=== PATIENT | male | born 1955 | race Caucasian/White ===

== ENCOUNTER 2016-10-09 03:03 | Inpatient (IN) | payer OTHER ==
[~2016-10-09] VITALS: Ht 170.2 cm; Wt 73.1 kg
[~2016-10-09 03:03] MED LIST: ACET-784 PO; AMLO2.5T PO; FERR-89 PO; INSLAN SQ; MULT-1238 PO; PANT40TA25 PO; TAMS0.4C32 PO
[2016-10-09 03:42] LABS: GLUCOSE,POINT OF CARE 73 MG/DL (70-110)
[2016-10-09 04:06] LABS: BASOPHILS % (AUTO) 0.1 % (0.0-2.0); EOSINOPHILS % (AUTO) 0.2 % (1.0-6.0); HEMATOCRIT 22.4 % (41-53); HEMOGLOBIN 7.6 g/dL (13.5-17.5); LYMPHOCYTES # (AUTO) 0.4 K/uL (1.0-4.8); LYMPHOCYTES % (AUTO) 5.4 % (22.0-44.0); MEAN CORPUSCULAR HEMOGLOBIN 31.2 pg (26.0-34.0); MEAN CORPUSCULAR HGB CONC 33.7 G/dL (31.0-37.0); MEAN CORPUSCULAR VOLUME 93 fL (80-100); MONOCYTES # (AUTO) 0.8 K/uL (0.1-1.0); NEUTROPHILS # (AUTO) 6.6 K/uL (1.8-7.7); NEUTROPHILS % (AUTO) 84.3 % (40.0-70.0); PLATELET COUNT (AUTO) 265 K/uL (150-450); RED BLOOD CELL COUNT(AUTO) 2.43 MIL/uL (4.50-5.90); WHITE BLOOD COUNT (AUTO) 7.8 K/uL (4.5-11.0)
[2016-10-09 04:18] LABS: INR 1.1 (0.9-1.1); PROTHROMBIN TIME 11.4 SEC (9.4-11.6)
[2016-10-09 04:41] LABS: BILIRUBIN,TOTAL 0.5 mg/dL (0.1-1.0); CALCIUM, TOTAL 7.5 mg/dL (8.8-10.5); CREATININE 12.76 mg/dL (0.60-1.30); POTASSIUM 4.4 mmol/L (3.5-5.1)
[2016-10-09] MEDS ORDERED: ASPIRIN 325 MG TABLET PO ONE (05:45)
[2016-10-09] MEDS ORDERED: NITROGLYCERIN 0.4 MG SUBLINGUAL TABLET #25 SL ONE (05:45)
[2016-10-09] MEDS ORDERED: HEPARIN SODIUM 25000 UNITS/D5W 250 ML IV ONE ×2 (06:00→06:45)
[2016-10-09] MEDS ORDERED: MORPHINE SULFATE 2 MG/ML SYRINGE IVP ONE (06:00)
[2016-10-09] MEDS ORDERED: CLOPIDOGREL BISULFATE 75 MG TABLET PO ONE (06:00)
[2016-10-09] MEDS ORDERED: ONDANSETRON HCL 4 MG/2 ML VIAL IVP ONE (06:00)
[2016-10-09] MEDS ORDERED: ONDANSETRON HCL 4 MG/2 ML VIAL IVP PRN ×2 (06:15→12:15)
[2016-10-09] MEDS ORDERED: 0.9% SODIUM CHLORIDE 10 ML SYRINGE IVP PRN (06:15)
[2016-10-09] MEDS ORDERED: HEPARIN SODIUM,PORCINE 5,000 UNITS/ML VIAL IVP ONE ×2 (06:30→06:45)
[2016-10-09] MEDS ORDERED: FUROSEMIDE 40 MG/4 ML VIAL IVP ONE (06:45)
[2016-10-09] MEDS ORDERED: HEPARIN SODIUM,PORCINE 5,000 UNITS/ML VIAL IVP PRN ×2 (07:00)
[2016-10-09 10:09] LABS: ABG A-A DIFF O2 25.5 mmHg (10-20.0); ABG BASE EXCESS -20.5 mmol/L (-2.0-3.0); ABG OXYHEMOGLOBIN 95.1 % (94.0-100.0); ABG PCO2 26 mmHg (35-45); TEMPERATURE, FAHRENHEIT, BG 97.8 FAHREN (96.0-98.6)
[2016-10-09 10:10] LABS: ABG PH 7.136 (7.35-7.450)
[2016-10-09 10:11] LABS: ABG HCO3 9.9 mmol/L (22.0-26.0); ALLEN TEST, BLOOD GAS Positive
[2016-10-09] MEDS ORDERED: VITAMIN B COMP/VIT C/FOLIC ACID CAPSULE PO ONE (10:15)
[2016-10-09] MEDS ORDERED: EPOETIN ALFA 10,000 UNITS/ML VIAL SQ ONE (10:15)
[2016-10-09] MEDS ORDERED: SODIUM BICARBONATE [ADULT] 8.4% 50 MEQ/50 ML SYRINGE IVP ONE (10:45)
[2016-10-09] MEDS ORDERED: HEPARIN SODIUM,PORCINE 1,000 UNITS/ML VIAL IVP ONE (12:00)
[2016-10-09] MEDS ORDERED: ALBUTEROL SULFATE 2.5 MG/0.5 ML NEB SOLUTION NEB PRN (12:15)
[2016-10-09] MEDS ORDERED: BISACODYL 10 MG RECTAL RECTAL SUPPOSITORY PR PRN (12:15)
[2016-10-09] MEDS ORDERED: IPRATROPIUM BROMIDE 0.5 MG/2.5 ML NEB SOLUTION NEB PRN (12:15)
[2016-10-09] MEDS ORDERED: MORPHINE SULFATE 4 MG/ML SYRINGE IVP PRN (12:15)
[2016-10-09] MEDS ORDERED: OxyCODONE HCL/ACETAMINOPHEN 5-325 MG TABLET PO PRN (12:15)
[2016-10-09] MEDS ORDERED: ACETAMINOPHEN 325 MG TABLET PO PRN (12:15)
[2016-10-09] MEDS: METOPROLOL TARTRATE 25 MG TABLET PO SCH ×2 (12:30→21:33)
[2016-10-09] MEDS ORDERED: DEXTROSE 50%-WATER 25 GM/50 ML SYRINGE IVP PRN (12:30)
[2016-10-09] MEDS: ATORVASTATIN CALCIUM 40 MG TABLET PO SCH (12:30)
[2016-10-09 13:13] LABS: HEMATOCRIT 21.2 % (41-53); HEMOGLOBIN 7.1 g/dL (13.5-17.5); MEAN CORPUSCULAR HEMOGLOBIN 31.4 pg (26.0-34.0); MEAN CORPUSCULAR HGB CONC 33.6 G/dL (31.0-37.0); MEAN CORPUSCULAR VOLUME 93 fL (80-100); RED BLOOD CELL COUNT(AUTO) 2.27 MIL/uL (4.50-5.90); RED CELL DISTRIBUTION WIDTH 17.1 % (11.5-14.5); WHITE BLOOD COUNT (AUTO) 6.2 K/uL (4.5-11.0)
[2016-10-09 13:14] LABS: BASOPHILS % (AUTO) 0.1 % (0.0-2.0); EOSINOPHILS % (AUTO) 0.01 % (1.0-6.0); LYMPHOCYTES # (AUTO) 0.7 K/uL (1.0-4.8); LYMPHOCYTES % (AUTO) 10.6 % (22.0-44.0); MONOCYTES # (AUTO) 0.7 K/uL (0.1-1.0); MONOCYTES % (AUTO) 11.1 % (2.0-9.0); NEUTROPHILS # (AUTO) 4.8 K/uL (1.8-7.7); NEUTROPHILS % (AUTO) 78.3 % (40.0-70.0); PLATELET COUNT (AUTO) 189 K/uL (150-450)
[2016-10-09 13:21] LABS: RBC MORPHOLOGY COMMENT ABNORMAL RBC MORPH
[2016-10-09 14:07] LABS: GLUCOSE,POINT OF CARE 86 MG/DL (70-110)
[2016-10-09] MEDS ORDERED: SODIUM CHLORIDE 0.9% 250 ML IV ONE ×2 (15:30→16:16)
[2016-10-09 18:02] LABS: GLUCOSE,POINT OF CARE 78 MG/DL (70-110)
[2016-10-09 20:00] VITALS: BP 113/57
[2016-10-09] MEDS: PANTOPRAZOLE SODIUM 40 MG DR TABLET PO SCH (21:33)
[2016-10-09] MEDS: DOCUSATE SODIUM 100 MG CAPSULE PO SCH (21:34)
[2016-10-09] MEDS: INSULIN ASPART 100 UNITS/ML SQ PRN (21:51)
[2016-10-10] VITALS: BP 157/99
[2016-10-10] MEDS ORDERED: HEPARIN SODIUM,PORCINE 5,000 UNITS/ML VIAL IVP PRN ×2 (01:00)
[2016-10-10] MEDS ORDERED: PNEUMOCOCCAL VACCINE POLYVALENT 0.5 ML VIAL [PPSV23] IM ONE (02:00)
[2016-10-10 04:00] VITALS: BP 151/91
[2016-10-10 05:12] LABS: BASOPHILS # (AUTO) 0.02 K/uL (0.00-0.20); BASOPHILS % (AUTO) 0.4 % (0.0-2.0); EOSINOPHILS # (AUTO) 0.04 K/uL (0.00-0.70); EOSINOPHILS % (AUTO) 0.82 % (1.0-6.0); HEMATOCRIT 25.1 % (41-53); HEMOGLOBIN 8.3 g/dL (13.5-17.5); LYMPHOCYTES # (AUTO) 0.9 K/uL (1.0-4.8); LYMPHOCYTES % (AUTO) 17.3 % (22.0-44.0); MEAN CORPUSCULAR HEMOGLOBIN 30.6 pg (26.0-34.0); MEAN CORPUSCULAR HGB CONC 33.1 G/dL (31.0-37.0); MEAN CORPUSCULAR VOLUME 93 fL (80-100); MONOCYTES # (AUTO) 0.7 K/uL (0.1-1.0); MONOCYTES % (AUTO) 14.3 % (2.0-9.0); NEUTROPHILS # (AUTO) 3.4 K/uL (1.8-7.7); NEUTROPHILS % (AUTO) 67.2 % (40.0-70.0); PLATELET COUNT (AUTO) 166 K/uL (150-450); RED BLOOD CELL COUNT(AUTO) 2.71 MIL/uL (4.50-5.90); RED CELL DISTRIBUTION WIDTH 16.9 % (11.5-14.5)
[2016-10-10 05:18] LABS: CREATININE 9.74 mg/dL (0.60-1.30); POTASSIUM 3.8 mmol/L (3.5-5.1)
[2016-10-10] MEDS: HEPARIN SODIUM 25000 UNITS/D5W 250 ML IV PRN (06:43)
[2016-10-10 07:36] LABS: GLUCOSE,POINT OF CARE 142 MG/DL (70-110)
[2016-10-10 07:36] LABS: GLUCOSE,POINT OF CARE 83 MG/DL (70-110)
[2016-10-10] MEDS: DOCUSATE SODIUM 100 MG CAPSULE PO SCH ×2 (07:54→21:18)
[2016-10-10] MEDS: METOPROLOL TARTRATE 25 MG TABLET PO SCH (07:54)
[2016-10-10] MEDS: PANTOPRAZOLE SODIUM 40 MG DR TABLET PO SCH ×2 (07:55→21:18)
[2016-10-10 08:00] VITALS: BP 176/86
[2016-10-10] MEDS: ATORVASTATIN CALCIUM 40 MG TABLET PO SCH (08:08)
[2016-10-10 09:13] LABS: RBC MORPHOLOGY COMMENT DIMORPHIC RBC
[2016-10-10] MEDS ORDERED: MANNITOL 25%-12.5 GM/50 ML VIAL IVP PRN (09:45)
[2016-10-10] MEDS ORDERED: HEPARIN SODIUM,PORCINE 1,000 UNITS/ML VIAL IVP ONE ×3 (09:45→18:13)
[2016-10-10] MEDS: CALCIUM ACETATE 667 MG CAPSULE PO SCH ×2 (11:38→17:23)
[2016-10-10] MEDS: INSULIN ASPART 100 UNITS/ML SQ PRN ×2 (11:39→17:24)
[2016-10-10 12:00] VITALS: BP 145/77
[2016-10-10] MEDS: METOPROLOL SUCCINATE 50 MG ER TABLET PO SCH (15:44)
[2016-10-10 16:00] VITALS: BP 138/67
[2016-10-10 17:52] LABS: GLUCOSE COMMENT 1 Received Meds; GLUCOSE,POINT OF CARE 223 MG/DL (70-110)
[2016-10-10 17:52] LABS: GLUCOSE COMMENT 1 Received Meds; GLUCOSE,POINT OF CARE 243 MG/DL (70-110)
[2016-10-10 20:00] VITALS: BP 142/74
[2016-10-10] MEDS: AmLODIPine BESYLATE 5 MG TABLET PO SCH (22:55)
[2016-10-11] VITALS (16 sets, daily range): BP systolic 71–159; BP diastolic 67–168
[2016-10-11] MEDS ORDERED: HEPARIN SODIUM,PORCINE 1,000 UNITS/ML VIAL IVP ONE
[2016-10-11] MEDS: HEPARIN SODIUM 25000 UNITS/D5W 250 ML IV PRN (05:08)
[2016-10-11 05:18] LABS: BASOPHILS % (AUTO) 0.4 % (0.0-2.0); EOSINOPHILS % (AUTO) 1.1 % (1.0-6.0); HEMATOCRIT 26.7 % (41-53); HEMOGLOBIN 9.1 g/dL (13.5-17.5); LYMPHOCYTES # (AUTO) 1.2 K/uL (1.0-4.8); MEAN CORPUSCULAR HEMOGLOBIN 31.3 pg (26.0-34.0); MEAN CORPUSCULAR HGB CONC 34.2 G/dL (31.0-37.0); MEAN CORPUSCULAR VOLUME 92 fL (80-100); MONOCYTES # (AUTO) 0.9 K/uL (0.1-1.0); MONOCYTES % (AUTO) 15.1 % (2.0-9.0); NEUTROPHILS # (AUTO) 3.7 K/uL (1.8-7.7); NEUTROPHILS % (AUTO) 63.4 % (40.0-70.0); PLATELET COUNT (AUTO) 175 K/uL (150-450); RED BLOOD CELL COUNT(AUTO) 2.92 MIL/uL (4.50-5.90); RED CELL DISTRIBUTION WIDTH 16.3 % (11.5-14.5); WHITE BLOOD COUNT (AUTO) 5.9 K/uL (4.5-11.0)
[2016-10-11 05:26] LABS: CALCIUM, TOTAL 7.4 mg/dL (8.8-10.5); CREATININE 6.98 mg/dL (0.60-1.30); POTASSIUM 3.6 mmol/L (3.5-5.1)
[2016-10-11] MEDS: ATORVASTATIN CALCIUM 40 MG TABLET PO SCH (08:02)
[2016-10-11] MEDS: CALCIUM ACETATE 667 MG CAPSULE PO SCH ×3 (08:02→17:51)
[2016-10-11] MEDS: DOCUSATE SODIUM 100 MG CAPSULE PO SCH ×2 (08:02→21:09)
[2016-10-11] MEDS: PANTOPRAZOLE SODIUM 40 MG DR TABLET PO SCH ×2 (08:02→21:09)
[2016-10-11] MEDS: AmLODIPine BESYLATE 5 MG TABLET PO SCH ×2 (08:02→21:10)
[2016-10-11] MEDS: METOPROLOL SUCCINATE 50 MG ER TABLET PO SCH (08:02)
[2016-10-11] MEDS ORDERED: EPOETIN ALFA 10,000 UNITS/ML VIAL SQ SCH (09:00)
[2016-10-11] MEDS ORDERED: FentaNYL CITRATE-PF 100 MCG/2 ML VIAL ONE (12:04)
[2016-10-11] MEDS ORDERED: MIDAZOLAM HCL 2 MG/2 ML VIAL ONE (12:04)
[2016-10-11] MEDS ORDERED: NITROGLYCERIN 50 MG/D5% WATER 250 ML ONE (12:05)
[2016-10-11] MEDS ORDERED: IOHEXOL 300 MG/ML 50 ML VIAL ONE (12:05)
[2016-10-11] MEDS ORDERED: VERAPAMIL HCL 2.5 MG/ML 2 ML VIAL ONE (12:05)
[2016-10-11] MEDS ORDERED: HEPARIN SODIUM,PORCINE 1,000 UNITS/ML 10 ML VIAL ONE (12:05)
[2016-10-11] MEDS ORDERED: LIDOCAINE HCL/PF 1% 30 ML VIAL ONE (12:05)
[2016-10-11] MEDS ORDERED: IOHEXOL 300 MG/ML 150 ML VIAL ONE (12:06)
[2016-10-11] MEDS ORDERED: SODIUM CHLORIDE 0.9% 500 ML IV ONE (12:19)
[2016-10-11] MEDS ORDERED: LIDOCAINE HCL/PF 1% 30 ML VIAL INJ ONE (12:20)
[2016-10-11] MEDS ORDERED: HEPARIN SODIUM 2,000 UNITS in HEPARIN SODIUM 1000 UNITS/NS 1,000 ML IARTER ONE (12:22)
[2016-10-11] MEDS ORDERED: IOHEXOL 300 MG/ML 150 ML VIAL IARTER ONE (12:29)
[2016-10-11] MEDS ORDERED: IOHEXOL 300 MG/ML 100 ML VIAL IARTER ONE (12:29)
[2016-10-11] MEDS ORDERED: IOHEXOL 300 MG/ML 50 ML VIAL IARTER ONE (12:29)
[2016-10-11] MEDS ORDERED: ASPIRIN 81 MG CHEWABLE TABLET ONE (12:43)
[2016-10-11] MEDS ORDERED: TICAGRELOR 90 MG TABLET ONE (12:43)
[2016-10-11] MEDS ORDERED: HEPARIN SODIUM,PORCINE 5,000 UNITS/ML VIAL IVP ONE ×2 (12:45→13:02)
[2016-10-11] MEDS ORDERED: ASPIRIN 325 MG TABLET PO ONE (12:47)
[2016-10-11] MEDS ORDERED: TICAGRELOR 90 MG TABLET PO ONE (12:47)
[2016-10-11] MEDS ORDERED: IOHEXOL 300 MG/ML 100 ML VIAL ONE (12:57)
[2016-10-11] MEDS ORDERED: NITROGLYCERIN/D5W 50 MG/250 ML IV BOTTLE ICOR ONE (13:06)
[2016-10-11] MEDS ORDERED: VERAPAMIL HCL 2.5 MG/ML 2 ML VIAL ICOR ONE (13:06)
[2016-10-11] MEDS: TICAGRELOR 90 MG TABLET PO SCH (21:09)
[2016-10-11] MEDS: INSULIN ASPART 100 UNITS/ML SQ PRN (21:10)
[2016-10-12] VITALS (7 sets, daily range): BP systolic 90–150; BP diastolic 62–86
[2016-10-12 00:57] LABS: GLUCOSE COMMENT 1 Received Meds; GLUCOSE,POINT OF CARE 96 MG/DL (70-110)
[2016-10-12 00:57] LABS: GLUCOSE,POINT OF CARE 186 MG/DL (70-110)
[2016-10-12 00:57] LABS: GLUCOSE,POINT OF CARE 124 MG/DL (70-110)
[2016-10-12 00:57] LABS: GLUCOSE,POINT OF CARE 123 MG/DL (70-110)
[2016-10-12 00:57] LABS: GLUCOSE,POINT OF CARE 116 MG/DL (70-110)
[2016-10-12 06:48] LABS: GLUCOSE,POINT OF CARE 90 MG/DL (70-110)
[2016-10-12 06:50] LABS: CALCIUM, TOTAL 7.7 mg/dL (8.8-10.5); CREATININE 5.1 mg/dL (0.60-1.30); POTASSIUM 3.5 mmol/L (3.5-5.1)
[2016-10-12] MEDS: ASPIRIN 81 MG CHEWABLE TABLET PO SCH (08:27)
[2016-10-12] MEDS: AmLODIPine BESYLATE 5 MG TABLET PO SCH ×2 (08:27→20:34)
[2016-10-12] MEDS: PANTOPRAZOLE SODIUM 40 MG DR TABLET PO SCH ×2 (08:27→20:34)
[2016-10-12] MEDS: ATORVASTATIN CALCIUM 40 MG TABLET PO SCH (08:27)
[2016-10-12] MEDS: CALCIUM ACETATE 667 MG CAPSULE PO SCH ×3 (08:27→17:48)
[2016-10-12] MEDS: DOCUSATE SODIUM 100 MG CAPSULE PO SCH ×2 (08:28→20:34)
[2016-10-12] MEDS: METOPROLOL SUCCINATE 50 MG ER TABLET PO SCH (08:28)
[2016-10-12] MEDS: TICAGRELOR 90 MG TABLET PO SCH ×2 (09:16→20:33)
[2016-10-12] MEDS: INSULIN ASPART 100 UNITS/ML SQ PRN ×2 (12:13→21:51)
[2016-10-12] MEDS: MUPIROCIN CALCIUM 2% 22 GM OINTMENT NASAL SCH (20:33)
[2016-10-13] MEDS ORDERED: HEPARIN SODIUM,PORCINE 1,000 UNITS/ML VIAL IVP ONE
[2016-10-13] MEDS ORDERED: MIDAZOLAM HCL 2 MG/2 ML VIAL IVP ONE (00:22)
[2016-10-13] MEDS ORDERED: FentaNYL CITRATE-PF 100 MCG/2 ML VIAL IVP ONE (00:22)
[2016-10-13] MEDS ORDERED: DiphenhydrAMINE HCL 50 MG/ML VIAL IVP ONE (00:22)
[2016-10-13] MEDS ORDERED: KETAMINE HCL 50 MG/ML 10 ML VIAL IVP ONE (00:22)
[2016-10-13] MEDS ORDERED: HEPARIN SODIUM,PORCINE 1,000 UNITS/ML 10 ML VIAL IVP ONE (00:22)
[2016-10-13] MEDS ORDERED: PROPOFOL 1% 20 ML VIAL IVP ONE (00:22)
[2016-10-13] MEDS ORDERED: ONDANSETRON HCL 4 MG/2 ML VIAL IVP ONE (00:22)
[2016-10-13 04:18] VITALS: BP 146/84
[2016-10-13 06:48] LABS: BASOPHILS % (AUTO) 0.3 % (0.0-2.0); EOSINOPHILS % (AUTO) 2.2 % (1.0-6.0); HEMATOCRIT 24.8 % (41-53); HEMOGLOBIN 8.4 g/dL (13.5-17.5); LYMPHOCYTES # (AUTO) 1.3 K/uL (1.0-4.8); LYMPHOCYTES % (AUTO) 16.9 % (22.0-44.0); MEAN CORPUSCULAR HEMOGLOBIN 31.2 pg (26.0-34.0); MEAN CORPUSCULAR HGB CONC 34.1 G/dL (31.0-37.0); MEAN CORPUSCULAR VOLUME 92 fL (80-100); MONOCYTES # (AUTO) 1.4 K/uL (0.1-1.0); NEUTROPHILS # (AUTO) 4.7 K/uL (1.8-7.7); NEUTROPHILS % (AUTO) 61.6 % (40.0-70.0); PLATELET COUNT (AUTO) 173 K/uL (150-450); RED BLOOD CELL COUNT(AUTO) 2.71 MIL/uL (4.50-5.90); RED CELL DISTRIBUTION WIDTH 16.3 % (11.5-14.5); WHITE BLOOD COUNT (AUTO) 7.6 K/uL (4.5-11.0)
[2016-10-13 07:03] LABS: CALCIUM, TOTAL 7.7 mg/dL (8.8-10.5); CREATININE 6.63 mg/dL (0.60-1.30)
[2016-10-13 07:25] VITALS: BP 145/85
[2016-10-13] MEDS: CALCIUM ACETATE 667 MG CAPSULE PO SCH ×3 (08:00→18:00)
[2016-10-13] MEDS: ATORVASTATIN CALCIUM 40 MG TABLET PO SCH (09:00)
[2016-10-13] MEDS: DOCUSATE SODIUM 100 MG CAPSULE PO SCH ×2 (09:00→21:00)
[2016-10-13] MEDS: PANTOPRAZOLE SODIUM 40 MG DR TABLET PO SCH ×2 (09:00→22:48)
[2016-10-13] MEDS: ASPIRIN 81 MG CHEWABLE TABLET PO SCH (09:00)
[2016-10-13] MEDS: METOPROLOL SUCCINATE 50 MG ER TABLET PO SCH (09:00)
[2016-10-13] MEDS: AmLODIPine BESYLATE 5 MG TABLET PO SCH ×2 (09:00→22:48)
[2016-10-13] MEDS: CALCITRIOL 0.25 MCG CAPSULE PO SCH (09:00)
[2016-10-13] MEDS: MUPIROCIN CALCIUM 2% 22 GM OINTMENT NASAL SCH (09:06)
[2016-10-13] MEDS: TICAGRELOR 90 MG TABLET PO SCH ×2 (09:06→22:48)
[2016-10-13] MEDS ORDERED: LORazepam 2 MG/ML VIAL IVP PRN (09:15)
[2016-10-13] MEDS ORDERED: SODIUM CHLORIDE 0.9% 2,000 ML IV ONE (11:06)
[2016-10-13 12:13] VITALS: BP 151/92
[2016-10-13 15:57] VITALS: BP 135/75
[2016-10-13] MEDS ORDERED: SODIUM CHLORIDE 0.9% 1,000 ML IV ONE ×2 (16:00→16:10)
[2016-10-13] MEDS ORDERED: HYDROmorphone 2 MG/ML SYRINGE IVP PRN (17:30)
[2016-10-13] MEDS ORDERED: FentaNYL CITRATE-PF 100 MCG/2 ML VIAL IVP PRN (17:30)
[2016-10-13] MEDS ORDERED: MEPERIDINE-PF 25 MG/ML SYRINGE IVP PRN (17:30)
[2016-10-13] MEDS ORDERED: HEPARIN SODIUM,PORCINE 5,000 UNITS/ML VIAL SQ ONE (17:32)
[2016-10-13] MEDS ORDERED: SODIUM CHLORIDE 0.9% 10 ML ONE (17:32)
[2016-10-13] MEDS ORDERED: LIDOCAINE HCL/PF 1% 30 ML VIAL ONE (17:32)
[2016-10-13] MEDS ORDERED: SODIUM CHLORIDE 0.9% 0 ML IV ONE (17:33)
[2016-10-13] MEDS ORDERED: HYDROCODONE/ACETAMINOPHEN 5-325 MG TABLET PO PRN (18:00)
[2016-10-13] MEDS ORDERED: LABETALOL HCL 5 MG/ML 20 ML VIAL IVP ONE ×2 (19:15→19:24)
[2016-10-13 20:00] VITALS: BP 147/84
[2016-10-13] MEDS: OXYGEN THERAPY IH SCH (20:00)
[2016-10-14] VITALS: BP 142/74
[2016-10-14 04:00] VITALS: BP 145/75
[2016-10-14] MEDS: INSULIN ASPART 100 UNITS/ML SQ PRN ×4 (06:31→20:25)
[2016-10-14 06:51] LABS: HEMATOCRIT 24.5 % (41-53); HEMOGLOBIN 8.2 g/dL (13.5-17.5); MEAN CORPUSCULAR HEMOGLOBIN 31.1 pg (26.0-34.0); MEAN CORPUSCULAR HGB CONC 33.7 G/dL (31.0-37.0); MEAN CORPUSCULAR VOLUME 92 fL (80-100); PLATELET COUNT (AUTO) 185 K/uL (150-450); RED BLOOD CELL COUNT(AUTO) 2.65 MIL/uL (4.50-5.90); RED CELL DISTRIBUTION WIDTH 16.2 % (11.5-14.5); WHITE BLOOD COUNT (AUTO) 7.8 K/uL (4.5-11.0)
[2016-10-14 07:03] LABS: ALBUMIN 2.3 g/dL (3.4-5.0); BILIRUBIN,TOTAL 0.4 mg/dL (0.1-1.0); CALCIUM, TOTAL 7.7 mg/dL (8.8-10.5); CREATININE 4.84 mg/dL (0.60-1.30); POTASSIUM 4.5 mmol/L (3.5-5.1); TOTAL PROTEIN, SERUM 5.9 g/dL (6.4-8.2)
[2016-10-14 07:34] LABS: BAND NEUTROPHILS % (MANUAL) 1 % (1-5); LYMPHOCYTES % (MANUAL) 31 % (22-44); RBC MORPHOLOGY COMMENT NORMAL RBC MORPH; TOTAL CELLS COUNTED 100
[2016-10-14] MEDS: OXYGEN THERAPY IH SCH ×2 (08:00→20:00)
[2016-10-14 08:02] VITALS: BP 139/80
[2016-10-14] MEDS: DOCUSATE SODIUM 100 MG CAPSULE PO SCH ×2 (09:10→20:03)
[2016-10-14] MEDS: ASPIRIN 81 MG CHEWABLE TABLET PO SCH (09:10)
[2016-10-14] MEDS: EPOETIN ALFA 10,000 UNITS/ML 2 ML VIAL SQ SCH (09:10)
[2016-10-14] MEDS: PANTOPRAZOLE SODIUM 40 MG DR TABLET PO SCH ×2 (09:10→20:03)
[2016-10-14] MEDS: TICAGRELOR 90 MG TABLET PO SCH ×2 (09:10→20:04)
[2016-10-14] MEDS: VITAMIN B COMP/VIT C/FOLIC ACID CAPSULE PO SCH (09:10)
[2016-10-14] MEDS: METOPROLOL SUCCINATE 50 MG ER TABLET PO SCH (09:10)
[2016-10-14] MEDS: AmLODIPine BESYLATE 5 MG TABLET PO SCH ×2 (09:10→20:03)
[2016-10-14] MEDS: ATORVASTATIN CALCIUM 40 MG TABLET PO SCH (09:10)
[2016-10-14] MEDS: MUPIROCIN CALCIUM 2% 22 GM OINTMENT NASAL SCH (09:11)
[2016-10-14] MEDS: CALCIUM ACETATE 667 MG CAPSULE PO SCH ×3 (09:11→17:44)
[2016-10-14 12:03] VITALS: BP 136/71
[2016-10-14 15:06] VITALS: BP 133/79
[2016-10-14 20:01] VITALS: BP 144/79
[2016-10-15] VITALS (7 sets, daily range): BP systolic 122–146; BP diastolic 62–78
[2016-10-15 05:59] LABS: CALCIUM, TOTAL 7.8 mg/dL (8.8-10.5); CREATININE 6.29 mg/dL (0.60-1.30); MAGNESIUM 1.5 mg/dL (1.80-2.40); POTASSIUM 4.7 mmol/L (3.5-5.1)
[2016-10-15 06:24] LABS: GLUCOSE COMMENT 1 Received Meds; GLUCOSE,POINT OF CARE 170 MG/DL (70-110)
[2016-10-15] MEDS: INSULIN ASPART 100 UNITS/ML SQ PRN ×2 (06:32→17:56)
[2016-10-15 07:27] LABS: GLUCOSE,POINT OF CARE 110 MG/DL (70-110)
[2016-10-15 07:27] LABS: GLUCOSE,POINT OF CARE 128 MG/DL (70-110)
[2016-10-15 07:32] LABS: GLUCOSE COMMENT 1 Received Meds; GLUCOSE,POINT OF CARE 150 MG/DL (70-110)
[2016-10-15 07:32] LABS: GLUCOSE COMMENT 1 Received Meds; GLUCOSE,POINT OF CARE 228 MG/DL (70-110)
[2016-10-15] MEDS: OXYGEN THERAPY IH SCH ×2 (08:00→20:00)
[2016-10-15] MEDS: PANTOPRAZOLE SODIUM 40 MG DR TABLET PO SCH ×2 (08:40→19:59)
[2016-10-15] MEDS: ATORVASTATIN CALCIUM 40 MG TABLET PO SCH (08:40)
[2016-10-15] MEDS: ASPIRIN 81 MG CHEWABLE TABLET PO SCH (08:41)
[2016-10-15] MEDS: AmLODIPine BESYLATE 5 MG TABLET PO SCH ×2 (08:41→19:59)
[2016-10-15] MEDS: DOCUSATE SODIUM 100 MG CAPSULE PO SCH ×2 (08:41→19:59)
[2016-10-15] MEDS: TICAGRELOR 90 MG TABLET PO SCH ×2 (08:43→19:59)
[2016-10-15] MEDS: METOPROLOL SUCCINATE 50 MG ER TABLET PO SCH (08:43)
[2016-10-15] MEDS: CALCIUM ACETATE 667 MG CAPSULE PO SCH ×3 (08:44→17:55)
[2016-10-15] MEDS: MUPIROCIN CALCIUM 2% 22 GM OINTMENT NASAL SCH (08:47)
[2016-10-15] MEDS: VITAMIN B COMP/VIT C/FOLIC ACID CAPSULE PO SCH (08:48)
[2016-10-15 19:17] LABS: GLUCOSE COMMENT 1 Received Meds; GLUCOSE,POINT OF CARE 193 MG/DL (70-110)
[2016-10-15 19:17] LABS: GLUCOSE COMMENT 1 Received Meds; GLUCOSE,POINT OF CARE 191 MG/DL (70-110)
[2016-10-15 19:22] LABS: GLUCOSE,POINT OF CARE 87 MG/DL (70-110)
[2016-10-15 19:22] LABS: GLUCOSE,POINT OF CARE 116 MG/DL (70-110)
[2016-10-15 19:22] LABS: GLUCOSE COMMENT 1 Received Meds; GLUCOSE,POINT OF CARE 153 MG/DL (70-110)
[2016-10-16 00:12] LABS: GLUCOSE,POINT OF CARE 254 MG/DL (70-110)
[2016-10-16 00:22] LABS: GLUCOSE,POINT OF CARE 125 MG/DL (70-110)
[2016-10-16 05:16] VITALS: BP 132/79
[2016-10-16 06:17] LABS: BASOPHILS % (AUTO) 0.2 % (0.0-2.0); HEMATOCRIT 24.6 % (41-53); HEMOGLOBIN 8.4 g/dL (13.5-17.5); LYMPHOCYTES # (AUTO) 1.3 K/uL (1.0-4.8); LYMPHOCYTES % (AUTO) 15.5 % (22.0-44.0); MEAN CORPUSCULAR HEMOGLOBIN 31.2 pg (26.0-34.0); MEAN CORPUSCULAR VOLUME 92 fL (80-100); MONOCYTES # (AUTO) 1.5 K/uL (0.1-1.0); MONOCYTES % (AUTO) 18.6 % (2.0-9.0); NEUTROPHILS # (AUTO) 5.2 K/uL (1.8-7.7); NEUTROPHILS % (AUTO) 62.7 % (40.0-70.0); PLATELET COUNT (AUTO) 215 K/uL (150-450); RED BLOOD CELL COUNT(AUTO) 2.68 MIL/uL (4.50-5.90); RED CELL DISTRIBUTION WIDTH 16.6 % (11.5-14.5); WHITE BLOOD COUNT (AUTO) 8.3 K/uL (4.5-11.0)
[2016-10-16 07:25] LABS: CREATININE 7.51 mg/dL (0.60-1.30); MAGNESIUM 1.5 mg/dL (1.80-2.40); PHOSPHORUS 1.9 mg/dL (2.5-4.9)
[2016-10-16 07:39] VITALS: BP 134/64
[2016-10-16] MEDS: OXYGEN THERAPY IH SCH ×2 (08:00→20:56)
[2016-10-16 10:37] LABS: GLUCOSE,POINT OF CARE 119 MG/DL (70-110)
[2016-10-16 11:47] VITALS: BP 152/78
[2016-10-16] MEDS: TICAGRELOR 90 MG TABLET PO SCH ×2 (12:01→20:56)
[2016-10-16] MEDS: AmLODIPine BESYLATE 5 MG TABLET PO SCH ×2 (12:03→20:56)
[2016-10-16] MEDS: DOCUSATE SODIUM 100 MG CAPSULE PO SCH ×2 (12:03→20:56)
[2016-10-16] MEDS: PANTOPRAZOLE SODIUM 40 MG DR TABLET PO SCH ×2 (12:10→20:56)
[2016-10-16] MEDS: ATORVASTATIN CALCIUM 40 MG TABLET PO SCH (12:30)
[2016-10-16] MEDS: CALCITRIOL 0.25 MCG CAPSULE PO SCH (12:31)
[2016-10-16] MEDS: ASPIRIN 81 MG CHEWABLE TABLET PO SCH (12:31)
[2016-10-16] MEDS: VITAMIN B COMP/VIT C/FOLIC ACID CAPSULE PO SCH (12:31)
[2016-10-16] MEDS: MUPIROCIN CALCIUM 2% 22 GM OINTMENT NASAL SCH (12:32)
[2016-10-16] MEDS: METOPROLOL SUCCINATE 50 MG ER TABLET PO SCH (12:32)
[2016-10-16] MEDS ORDERED: HEPARIN SODIUM,PORCINE 1,000 UNITS/ML VIAL IVP ONE (12:38)
[2016-10-16] MEDS: EPOETIN ALFA 10,000 UNITS/ML 2 ML VIAL SQ SCH (13:07)
[2016-10-16 15:07] VITALS: BP 138/74
[2016-10-16] MEDS: INSULIN ASPART 100 UNITS/ML SQ PRN ×2 (17:49→21:46)
[2016-10-16 20:02] VITALS: BP 136/74
[2016-10-16 23:40] VITALS: BP 121/72
[2016-10-17 05:18] VITALS: BP 135/74
[2016-10-17 08:02] VITALS: BP 146/72
[2016-10-17] MEDS: OXYGEN THERAPY IH SCH ×2 (08:44→20:51)
[2016-10-17] MEDS: DOCUSATE SODIUM 100 MG CAPSULE PO SCH ×2 (08:45→20:44)
[2016-10-17] MEDS: ATORVASTATIN CALCIUM 40 MG TABLET PO SCH (08:45)
[2016-10-17] MEDS: ASPIRIN 81 MG CHEWABLE TABLET PO SCH (08:45)
[2016-10-17] MEDS: TICAGRELOR 90 MG TABLET PO SCH ×2 (08:45→20:44)
[2016-10-17] MEDS: MUPIROCIN CALCIUM 2% 22 GM OINTMENT NASAL SCH (08:45)
[2016-10-17] MEDS: PANTOPRAZOLE SODIUM 40 MG DR TABLET PO SCH ×2 (08:46→20:44)
[2016-10-17] MEDS: VITAMIN B COMP/VIT C/FOLIC ACID CAPSULE PO SCH (08:46)
[2016-10-17] MEDS: AmLODIPine BESYLATE 5 MG TABLET PO SCH ×2 (08:46→20:45)
[2016-10-17 09:33] LABS: GLUCOSE,POINT OF CARE 221 MG/DL (70-110)
[2016-10-17 11:29] VITALS: BP 133/73
[2016-10-17] MEDS: METOPROLOL SUCCINATE 50 MG ER TABLET PO SCH (11:50)
[2016-10-17] MEDS: INSULIN ASPART 100 UNITS/ML SQ PRN ×2 (11:54→20:50)
[2016-10-17 15:39] VITALS: BP 117/66
[2016-10-17 20:03] VITALS: BP 131/75
[2016-10-17 23:52] VITALS: BP 126/72
[2016-10-18 04:47] VITALS: BP 126/63
[2016-10-18 07:56] VITALS: BP 150/85
[2016-10-18] MEDS: OXYGEN THERAPY IH SCH ×2 (08:00→20:00)
[2016-10-18] MEDS: CALCITRIOL 0.25 MCG CAPSULE PO SCH (09:00)
[2016-10-18] MEDS: MUPIROCIN CALCIUM 2% 22 GM OINTMENT NASAL SCH (09:00)
[2016-10-18] MEDS: VITAMIN B COMP/VIT C/FOLIC ACID CAPSULE PO SCH (09:00)
[2016-10-18] MEDS: METOPROLOL SUCCINATE 50 MG ER TABLET PO SCH (09:00)
[2016-10-18 11:41] VITALS: BP 132/66
[2016-10-18] MEDS: INSULIN ASPART 100 UNITS/ML SQ PRN ×2 (11:45→20:58)
[2016-10-18 12:29] LABS: BASOPHILS # (AUTO) 0.03 K/uL (0.00-0.20); BASOPHILS % (AUTO) 0.6 % (0.0-2.0); EOSINOPHILS # (AUTO) 0.09 K/uL (0.00-0.70); EOSINOPHILS % (AUTO) 1.84 % (1.0-6.0); HEMATOCRIT 24.4 % (41-53); LYMPHOCYTES # (AUTO) 1.1 K/uL (1.0-4.8); LYMPHOCYTES % (AUTO) 22.1 % (22.0-44.0); MEAN CORPUSCULAR HEMOGLOBIN 30.2 pg (26.0-34.0); MEAN CORPUSCULAR HGB CONC 32.8 G/dL (31.0-37.0); MEAN CORPUSCULAR VOLUME 92 fL (80-100); MONOCYTES # (AUTO) 0.6 K/uL (0.1-1.0); MONOCYTES % (AUTO) 11.5 % (2.0-9.0); NEUTROPHILS # (AUTO) 3.3 K/uL (1.8-7.7); PLATELET COUNT (AUTO) 243 K/uL (150-450); RED BLOOD CELL COUNT(AUTO) 2.65 MIL/uL (4.50-5.90); RED CELL DISTRIBUTION WIDTH 16.4 % (11.5-14.5); WHITE BLOOD COUNT (AUTO) 5.2 K/uL (4.5-11.0)
[2016-10-18 12:36] LABS: CALCIUM, TOTAL 7.9 mg/dL (8.8-10.5); CREATININE 5.83 mg/dL (0.60-1.30); POTASSIUM 3.7 mmol/L (3.5-5.1)
[2016-10-18] MEDS: DOCUSATE SODIUM 100 MG CAPSULE PO SCH ×2 (15:23→20:56)
[2016-10-18] MEDS: AmLODIPine BESYLATE 5 MG TABLET PO SCH ×2 (15:23→20:56)
[2016-10-18] MEDS: PANTOPRAZOLE SODIUM 40 MG DR TABLET PO SCH ×2 (15:23→20:56)
[2016-10-18] MEDS: ASPIRIN 81 MG CHEWABLE TABLET PO SCH (15:23)
[2016-10-18] MEDS: ATORVASTATIN CALCIUM 40 MG TABLET PO SCH (15:23)
[2016-10-18] MEDS: TICAGRELOR 90 MG TABLET PO SCH ×2 (15:23→20:56)
[2016-10-18] MEDS: EPOETIN ALFA 10,000 UNITS/ML 2 ML VIAL SQ SCH (15:24)
[2016-10-18 16:01] VITALS: BP 145/75
[2016-10-18] MEDS ORDERED: HEPARIN SODIUM,PORCINE 1,000 UNITS/ML VIAL IVP ONE (17:17)
[2016-10-18 19:27] VITALS: BP 158/82
[2016-10-18 23:41] VITALS: BP 127/73
[2016-10-19 04:25] VITALS: BP 123/72
[2016-10-19 07:28] VITALS: BP 135/75
[2016-10-19] MEDS: OXYGEN THERAPY IH SCH (09:51)
[2016-10-19] MEDS: MUPIROCIN CALCIUM 2% 22 GM OINTMENT NASAL SCH (09:51)
[2016-10-19] MEDS: METOPROLOL SUCCINATE 50 MG ER TABLET PO SCH (09:52)
[2016-10-19] MEDS: ATORVASTATIN CALCIUM 40 MG TABLET PO SCH (09:52)
[2016-10-19] MEDS: DOCUSATE SODIUM 100 MG CAPSULE PO SCH (09:52)
[2016-10-19] MEDS: TICAGRELOR 90 MG TABLET PO SCH (09:52)
[2016-10-19] MEDS: PANTOPRAZOLE SODIUM 40 MG DR TABLET PO SCH (09:52)
[2016-10-19] MEDS: ASPIRIN 81 MG CHEWABLE TABLET PO SCH (09:52)
[2016-10-19] MEDS: VITAMIN B COMP/VIT C/FOLIC ACID CAPSULE PO SCH (09:52)
[2016-10-19 11:22] VITALS: BP 124/74
[2016-10-19] MEDS: AmLODIPine BESYLATE 5 MG TABLET PO SCH (11:59)
[2016-10-19] MEDS: INSULIN ASPART 100 UNITS/ML SQ PRN (12:01)
[2016-10-19 15:42] VITALS: BP 126/70
[2016-10-19] MEDS ORDERED: ASPI81 PO (16:27)
[2016-10-19] MEDS ORDERED: ATOR40TA28 PO (16:28)
[2016-10-19] MEDS ORDERED: CALC25 PO (16:33)
[2016-10-22 20:47] LABS: GLUCOSE,POINT OF CARE 90 MG/DL (70-110)
[2016-10-22 20:47] LABS: GLUCOSE COMMENT 1 Received Meds; GLUCOSE,POINT OF CARE 172 MG/DL (70-110)
[2016-10-22 20:47] LABS: GLUCOSE,POINT OF CARE 130 MG/DL (70-110)
[2016-10-22 23:18] LABS: GLUCOSE,POINT OF CARE 130 MG/DL (70-110)
[2016-10-22 23:22] LABS: GLUCOSE COMMENT 1 Received Meds; GLUCOSE,POINT OF CARE 146 MG/DL (70-110)
[2016-10-23 15:28] LABS: GLUCOSE COMMENT 1 Received Meds; GLUCOSE,POINT OF CARE 153 MG/DL (70-110)
[2016-10-23 15:28] LABS: GLUCOSE,POINT OF CARE 91 MG/DL (70-110)
[2016-10-23 15:28] LABS: GLUCOSE,POINT OF CARE 136 MG/DL (70-110)
[2016-10-23 15:32] LABS: GLUCOSE COMMENT 1 Received Meds; GLUCOSE,POINT OF CARE 202 MG/DL (70-110)
[2016-10-23 15:32] LABS: GLUCOSE,POINT OF CARE 129 MG/DL (70-110)
[2016-10-23 15:32] LABS: GLUCOSE COMMENT 1 Received Meds; GLUCOSE,POINT OF CARE 155 MG/DL (70-110)
== END 2016-10-19 18:10 | DRG 174 ==
LOC: EMS 03:04 → ICU 17:46 → ICUN 10-10 07:05 → 5S 10-12 08:12
PROVIDERS: ADMIT Internal Medicine; ATTEND Internal Medicine
PROC: 5A1D60Z (ICD-10-PCS; 2016-10-09)
PROC: 30233N1 Transfusion of Nonautologous Red Blood Cells into Peripheral Vein, Percutaneous Approach (ICD-10-PCS; 2016-10-09)
PROC: 02703DZ Dilation of Coronary Artery, One Artery with Intraluminal Device, Percutaneous Approach (ICD-10-PCS; principal; 2016-10-11)
PROC: 4A023N7 Measurement of Cardiac Sampling and Pressure, Left Heart, Percutaneous Approach (ICD-10-PCS; 2016-10-11)
PROC: B2111ZZ Fluoroscopy of Multiple Coronary Arteries using Low Osmolar Contrast (ICD-10-PCS; 2016-10-11)
PROC: B2151ZZ Fluoroscopy of Left Heart using Low Osmolar Contrast (ICD-10-PCS; 2016-10-11)
PROC: B41F1ZZ Fluoroscopy of Right Lower Extremity Arteries using Low Osmolar Contrast (ICD-10-PCS; 2016-10-11)
PROC: 031C0ZF Bypass Left Radial Artery to Lower Arm Vein, Open Approach (ICD-10-PCS; 2016-10-13)
DX: I21.4 Non-ST elevation (NSTEMI) myocardial infarction (principal); I13.2 Hypertensive heart and chronic kidney disease with heart failure and with stage 5 chronic kidney disease, or end stage renal disease; G93.40 Encephalopathy, unspecified; N18.6 End stage renal disease; E87.2 Acidosis; D63.8 Anemia in other chronic diseases classified elsewhere; F17.210 Nicotine dependence, cigarettes, uncomplicated; I50.9 Heart failure, unspecified; F10.10 Alcohol abuse, uncomplicated; E83.51 Hypocalcemia; Y90.0 Blood alcohol level of less than 20 mg/100 ml; E78.5 Hyperlipidemia, unspecified; G89.29 Other chronic pain; I25.10 Atherosclerotic heart disease of native coronary artery without angina pectoris; E83.39 Other disorders of phosphorus metabolism; B95.62 Methicillin resistant Staphylococcus aureus infection as the cause of diseases classified elsewhere; K21.9 Gastro-esophageal reflux disease without esophagitis; E11.22 Type 2 diabetes mellitus with diabetic chronic kidney disease; E11.65 Type 2 diabetes mellitus with hyperglycemia; N40.0 Benign prostatic hyperplasia without lower urinary tract symptoms; E46 Unspecified protein-calorie malnutrition; Z68.25 Body mass index [BMI] 25.0-25.9, adult; Z79.899 Other long term (current) drug therapy; Z83.3 Family history of diabetes mellitus; Z59.0 Homelessness; Z89.422 Acquired absence of other left toe(s); Z82.49 Family history of ischemic heart disease and other diseases of the circulatory system; Z91.19 Patient's noncompliance with other medical treatment and regimen; Z99.2 Dependence on renal dialysis; Z28.21 Immunization not carried out because of patient refusal
CPT/HCPCS: 76770; 80307; 82805; 82962; 83735; 83970; 84100; 86850; 86900; 86901; 86920; 87040; 87081; 87340; 92920; 92928; 93005; 93306; 93970; 96365; 96366; 96372; 96375; 97161; 97165; 99291; G0480; J0690; J0885; J1200; J1644; J1940; J2250; J2270; J2405; J2704; J3010; J3490; J7030; J7050; P9016; Q9967

== ENCOUNTER → 2017-01-16 | Outpatient (CLI) | payer OTHER ==
[~2017-01-16] MED LIST changes: +ASPI81 PO; +ATOR40TA28 PO; +CALC25 PO; +LIDOCAINE HCL/PF 1% 30 ML VIAL ONE; +LIDOCAINE HCL/PF 1% 5 ML VIAL ONE
== END | disposition home or self-care (01) ==
LOC: RADMN 13:10
PROVIDERS: ATTEND Internal Medicine
DX: Z49.01 Encounter for fitting and adjustment of extracorporeal dialysis catheter (principal)
CPT/HCPCS: 36589; J3490